=== PATIENT | male | born 1960 | race Caucasian/White ===

== ENCOUNTER 2018-09-04 07:03 | Emergency (ER) | payer BC ==
--- NOTE | 2018-09-04 08:30 | EDPHYS ---
Physician Documentation [facility] Name: Kevin Mcgarry Jr Age: 58 yrs Sex: Male : 1960 Arrival Date: 09/04/2018 Time: 07:05 Bed 18 Private MD: ED Physician Azam Black HPI: 09/04 07:06 This 58 yrs old Male presents to ER via Unassigned with complaints of kb shoulder pain s/p fall. 07:06 The patient has not experienced similar symptoms in the past. The patient has not kb recently seen a physician. 07:07 Details of fall: The patient fell from an upright position, while walking. Onset: The kb symptoms/episode began/occurred this morning. Associated injuries: The patient sustained injury to the head, abrasion, hematoma, anterior aspect of right shoulder, decreased range of motion, painful injury. Severity of symptoms: At their worst the symptoms were mild, in the emergency department the symptoms are unchanged. Pt reports he slipped in mud while walking and fell. Hit head on scaffold and has right shoulder pain. Pt is unsure of what caused the shoulder pain, whether he landed on shoulder or on outstretched arm. Historical: - Allergies: 07:13 No Known Allergies; em - PMHx: 07:13 Anxiety; em - PSHx: 07:13 Hernia repair; gastic sleeve; em - Immunization history:: Adult Immunizations up to date. - Social history:: Smoking status: Patient uses tobacco products, denies chronic smoking, but will smoke occasionally. - Ebola Screening: : Patient negative for fever greater than or equal to 101.5 degrees Fahrenheit, and additional compatible Ebola Virus Disease symptoms Patient denies exposure to infectious person Patient denies travel to an Ebola-affected area in the 21 days before illness onset No symptoms or risks identified at this time. ROS: 07:08 Constitutional: Negative for fever, chills, and weight loss, Eyes: Negative for injury, kb pain, redness, and discharge, ENT: Negative for injury, pain, and discharge, Neck: Negative for injury, pain, and swelling, Cardiovascular: Negative for chest pain, palpitations, and edema, Respiratory: Negative for shortness of breath, cough, wheezing, and pleuritic chest pain, Abdomen/GI: Negative for abdominal pain, nausea, vomiting, diarrhea, and constipation, Neuro: Negative for headache, weakness, numbness, tingling, and seizure. 07:08 MS/extremity: Positive for decreased range of motion, pain, of the right shoulder. 07:08 Skin: Positive for hematoma, of the right side of forehead. Exam: 07:08 Constitutional: This is a well developed, well nourished patient who is awake, alert, kb and in no acute distress. Eyes: Pupils equal round and reactive to light, extra-ocular motions intact. Lids and lashes normal. Conjunctiva and sclera are non-icteric and not injected. Cornea within normal limits. Periorbital areas with no swelling, redness, or edema. ENT: Nares patent. No nasal discharge, no septal abnormalities noted. Tympanic membranes are normal and external auditory canals are clear. Oropharynx with no redness, swelling, or masses, exudates, or evidence of obstruction, uvula midline. Mucous membranes moist. Neck: Trachea midline, no thyromegaly or masses palpated, and no cervical lymphadenopathy. Supple, full range of motion without nuchal rigidity, or vertebral point tenderness. No Meningismus. Chest/axilla: Normal chest wall appearance and motion. Nontender with no deformity. No lesions are appreciated. Cardiovascular: Regular rate and rhythm with a normal S1 and S2. No gallops, murmurs, or rubs. Normal PMI, no JVD. No pulse deficits. Respiratory: Lungs have equal breath sounds bilaterally, clear to auscultation and percussion. No rales, rhonchi or wheezes noted. No increased work of breathing, no retractions or nasal flaring. Abdomen/GI: Soft, non-tender, with normal bowel sounds. No distension or tympany. No guarding or rebound. No evidence of tenderness throughout. Neuro: Awake and alert, GCS 15, oriented to person, place, time, and situation. Cranial nerves II-XII grossly intact. Motor strength 5/5 in all extremities. Sensory grossly intact. Cerebellar exam normal. Normal gait. 07:08 Head/face: Noted is no obvious of injury or deformity except abrasion(s), that are mild, of the right side of forehead, hematoma, that is mild, of the right side of forehead. 07:08 Musculoskeletal/extremity: Extremities: grossly normal except: noted in the anterior aspect of right shoulder: decreased ROM, pain, ROM: limited active range of motion due to pain, in the anterior aspect of right shoulder, Circulation is intact in all extremities. Sensation intact. Vital Signs: 07:13 BP 130 / 84; Pulse 61; Resp 18; Temp 98.8; Pulse Ox 97% on R/A; Weight 108.86 kg; em Height 5 ft. 11 in. (180.34 cm); Pain 3/10; 07:13 Body Mass Index 33.47 (108.86 kg, 180.34 cm) em MDM: 07:06 Patient medically screened. kb 07:11 Data reviewed: vital signs, nurses notes. Data interpreted: Pulse oximetry: on room air kb is 100 %. Interpretation: normal. 08:28 Counseling: I had a detailed discussion with the patient and/or guardian regarding: the kb historical points, exam findings, and any diagnostic results supporting the discharge/admit diagnosis, radiology results, the need for outpatient follow up, a family practitioner, to return to the emergency department if symptoms worsen or persist or if there are any questions or concerns that arise at home. ED course: Pt has ROM to shoulder now. Refuses sling. Reports shoulder feels better. 09/04 07:06 Order name: Shoulder Right (2 View) XRAY kb Administered Medications: No medications were administered Disposition: 09/04/18 08:29 Discharged to Home. Impression: Pain in right shoulder. - Condition is Stable. - Discharge Instructions: Shoulder Pain, [id number]. - Medication Reconciliation Form, Thank You Letter, Antibiotic Education, Prescription Opioid Use form. - Follow up: Emergency Department; When: As needed; Reason: Worsening of condition. Follow up: Private Physician; When: 2 - 3 days; Reason: Recheck today's complaints, Continuance of care, Re-evaluation by your physician. Signatures: Dispatcher [employer] Tiffany Busch FNP-C FNP-Rafi Morris, LEASING MACHINE TENDER LEASING MACHINE TENDER em Corrections: (The following items were deleted from the chart) 07:11 07:07 Associated injuries: The patient sustained anterior aspect of right shoulder, kb decreased range of motion, painful injury, kb 08:41 08:29 09/04/2018 08:29 Discharged to Home. Impression: Pain in right shoulder. em Condition is Stable. Forms are Medication Reconciliation Form, Thank You Letter, Antibiotic Education, Prescription Opioid Use. Follow up: Emergency Department; When: As needed; Reason: Worsening of condition. Follow up: Private Physician; When: 2 - 3 days; Reason: Recheck today's complaints, Continuance of care, Re-evaluation by your physician. kb
--- NOTE | 2018-09-04 08:30 | ER ---
Nurse's Notes [facility] Name: Kevin Mcgarry Jr Age: 58 yrs Sex: Male : 1960 Arrival Date: 09/04/2018 Time: 07:05 Bed 18 Private MD: Diagnosis: Pain in right shoulder Presentation: 09/04 07:06 Presenting complaint: EMS states: tripped at work, tried to grab rail and hurt right em shoulder, also hit head on scaffold bar, small abrasion noted to the top right side of head, denies LOC. Transition of care: patient was not received from another setting of care. Onset of symptoms was September 04, 2018. Risk Assessment: Do you want to hurt yourself or someone else? Patient reports no desire to harm self or others. Initial Sepsis Screen: Does the patient meet any 2 criteria? No. Patient's initial sepsis screen is negative. Does the patient have a suspected source of infection? No. Patient's initial sepsis screen is negative. Care prior to arrival: None. 07:06 Method Of Arrival: EMS: [facility] em 07:17 Acuity: WILLIAM 4 iw Triage Assessment: 07:13 General: Appears in no apparent distress. comfortable, Behavior is calm, cooperative. em Pain: Complains of pain in right side of forehead and anterior aspect of right shoulder Pain currently is 3 out of 10 on a pain scale. Historical: - Allergies: 07:13 No Known Allergies; em - PMHx: 07:13 Anxiety; em - PSHx: 07:13 Hernia repair; gastic sleeve; em - Immunization history:: Adult Immunizations up to date. - Social history:: Smoking status: Patient uses tobacco products, denies chronic smoking, but will smoke occasionally. - Ebola Screening: : Patient negative for fever greater than or equal to 101.5 degrees Fahrenheit, and additional compatible Ebola Virus Disease symptoms Patient denies exposure to infectious person Patient denies travel to an Ebola-affected area in the 21 days before illness onset No symptoms or risks identified at this time. Screenin:14 Abuse screen: Denies threats or abuse. Nutritional screening: No deficits noted. em Tuberculosis screening: No symptoms or risk factors identified. Fall Risk None identified. Assessment: 07:10 General: Appears in no apparent distress. comfortable, Behavior is calm, cooperative. em Pain: Complains of pain in right arm and anterior aspect of right shoulder Pain currently is 3 out of 10 on a pain scale. Neuro: Level of Consciousness is awake, alert, obeys commands, Oriented to person, place, time, situation. Cardiovascular: Capillary refill < 3 seconds Patient's skin is warm and dry. Respiratory: Airway is patent Respiratory effort is even, unlabored, Respiratory pattern is regular, symmetrical. GI: Abdomen is flat. : No signs and/or symptoms were reported regarding the genitourinary system. EENT: No signs and/or symptoms were reported regarding the EENT system. Derm: Skin is intact, Skin is pink, warm \T\ dry. Musculoskeletal: Range of motion: limited in right shoulder. 07:40 Reassessment: Patient appears in no apparent distress at this time. I agree with above iw assessment by Rafi Tony LVN. 08:23 Reassessment: Patient appears in no apparent distress at this time. Patient and/or em family updated on plan of care and expected duration. Pain level reassessed. Patient is alert, oriented x 3, equal unlabored respirations, skin warm/dry/pink. safety personal at bedside. Vital Signs: 07:13 BP 130 / 84; Pulse 61; Resp 18; Temp 98.8; Pulse Ox 97% on R/A; Weight 108.86 kg; em Height 5 ft. 11 in. (180.34 cm); Pain 3/10; 07:13 Body Mass Index 33.47 (108.86 kg, 180.34 cm) em ED Course: 07:05 Patient arrived in ED. kb 07:05 Tiffany Sky [facility]C [facility]. kb 07:05 Azam Black MD is Attending Physician. kb 07:06 Rafi Tony LVN is Primary Nurse. em 07:13 Arm band placed on. em 07:13 Patient has correct armband on for positive identification. Placed in gown. Bed in low em position. Call light in reach. Adult w/ patient. 07:17 Triage completed. iw 08:12 Shoulder Right (2 View) XRAY In Process Unspecified. EDMS 08:33 No provider procedures requiring assistance completed. Patient did not have IV access em during this emergency room visit. Administered Medications: No medications were administered Outcome: 08:29 Discharge ordered by . kb 08:33 Discharged to home ambulatory. em 08:33 Condition: good 08:33 Discharge instructions given to patient, Instructed on discharge instructions, follow up and referral plans. Demonstrated understanding of instructions, follow-up care. 08:41 Patient left the ED. em Signatures: Dispatcher [employer] Tiffany Busch, CIPRIANO-C CIPRIANO-Rafi Morris, DISHWASHING MACHINE OPERATOR DISHWASHING MACHINE OPERATOR em Alyse Greene RN RN iw
[2018-09-04 08:49] VITALS: BP 130/84; TEMP 98.8; O2SAT 97
--- NOTE | 2018-09-04 13:17 | RAD REPORT ---
EXAM DESCRIPTION: RAD - Shoulder Right 2 View - 09/04/2018 8:12 am CLINICAL HISTORY: PAIN Fall, pain COMPARISON: No comparisons FINDINGS: Mild AC joint degenerative changes are present. No fracture or dislocation is seen.
== END 2018-09-04 08:41 | disposition home or self-care (01) ==
LOC: ER 07:03
DX: M25.511 Pain in right shoulder (principal); Z72.0 Tobacco use; W01.0XXA Fall on same level from slipping, tripping and stumbling without subsequent striking against object, initial encounter
CPT/HCPCS: 99283